=== PATIENT | female | born 1980 | race Caucasian/White ===

== ENCOUNTER 2017-01-12 21:54 | Emergency (ER) | payer OTHER ==
[~2017-01-12 21:54] MED LIST: ALBUTEROL17 GM INH; AMOXICILLIN875 MG PO; BENTYL20 MG PO; FLEXERIL10 M1 PO; FLEXERIL10 MG PO; HYDROCODON-ACE1 EAC7 PO; IBUPROFEN800 MG PO; NAPROSYN375 MG PO; NO MEDICATIONS; OMEPRAZOLE40 M1 PO; OMEPRAZOLE40 MG PO; PEG3350510 GM PO; PHENERGAN25 M1 PO; VOLTAREN75 MG PO; ZOFRAN PO; [UNRECOGNIZED DRUG - REMARK]
== END 2017-01-12 22:31 | disposition home or self-care (01) ==
LOC: SED 21:54
DX: J02.9 Acute pharyngitis, unspecified (principal); K08.89 Other specified disorders of teeth and supporting structures; F17.200 Nicotine dependence, unspecified, uncomplicated; F41.9 Anxiety disorder, unspecified; Z88.8 Allergy status to other drugs, medicaments and biological substances
CPT/HCPCS: 99282; 99283